=== PATIENT | female | born 1950 | race Caucasian/White ===

== ENCOUNTER 2016-06-28 10:54 | Outpatient (CLI) | payer MEDICARE, MEDICAID | END 2016-06-28 10:55 | disposition home or self-care (01) | DX: R53.83 Other fatigue (principal); I10 Essential (primary) hypertension ==

== ENCOUNTER 2016-07-03 08:00 | Outpatient (CLI) | payer MEDICARE, MEDICAID | END 2016-07-03 08:01 | DX: Z86.2 Personal history of diseases of the blood and blood-forming organs and certain disorders involving the immune mechanism (principal); R53.83 Other fatigue ==

== ENCOUNTER 2017-08-13 13:27 | Outpatient (CLI) | payer MEDICARE, MEDICAID ==
--- NOTE | 2017-08-14 10:10 | DEXA Report ---
DEXA: 08/13/2017 CLINICAL INDICATION: Postmenopausal. TECHNIQUE: Dual energy x-ray absorptiometry (DXA) was performed on a [employer] system. Regions measured are the AP spine, femoral neck, and, if needed, forearm. COMPARISON: None. In accordance with the International Society for Clinical Densitometry (ISCD) guidelines, data from previous exams may be reanalyzed using current recommendations and techniques. This is done to allow a more accurate basis for comparison with the current study. FINDINGS The data for the lumbar spine is as follows: REGION BMD (g/cm/cm) T-SCORE Z-SCORE L1 0.741 -3.2 -1.0 L2 0.918 -2.4 -0.1 L3 1.053 -1.2 1.0 L4 1.234 0.3 2.5 L1-L4 1.027 -1.3 1.0 NOTE: All evaluable vertebrae are used for classification. The data for the hip is as follows: REGION BMD (g/cm/cm) T-SCORE Z-SCORE Neck 0.625 -3.0 -0.9 TOTAL 0.606 -3.2 -1.3 NOTE: The femoral neck or total proximal femur, whichever is lowest, is used for classification. IMPRESSION WHO CLASSIFICATION BASED ON THE INTERNATIONAL REFERENCE STANDARD IS OSTEOPOROSIS. FRACTURE RISK IS HIGH. RECOMMENDATION: Patients with diagnosis of osteoporosis or osteopenia should have regular bone mineral density assessment. For those eligible for Medicare, routine testing is allowed once every 2 years. Testing frequency can be increased for patients who have rapidly progressing disease or for those who are receiving medical therapy to restore bone mass. COMMENT World Health Organization (WHO) definitions for osteoporosis and osteopenia: NORMAL BMD: T-score at 1.0 or higher, fracture risk is low. OSTEOPENIA BMD: T-score between 1.0 and -2.5, fracture risk is increased. OSTEOPOROSIS BMD: T-score at 2.5 or lower, fracture risk high. National Osteoporosis Foundation recommends: 1. Obtain adequate dietary calcium (at least 1200 mg per day) and vitamin D (400 -800 international units per day). 2. Participate, as appropriate, in regular weightbearing and muscle- strengthening exercise. 3. Avoid tobacco use and reduce alcohol and caffeine intake. 4. For more detailed information see the website at www.NOF.org. TD: 08/13/2017 15:46 MTDD
== END 2017-08-13 13:28 | disposition home or self-care (01) ==
LOC: DI 13:27
PROVIDERS: ATTEND Nurse Practitioner Family
DX: Z00.00 Encounter for general adult medical examination without abnormal findings (principal); M81.0 Age-related osteoporosis without current pathological fracture
CPT/HCPCS: 77080

== ENCOUNTER 2017-08-13 13:28 | Outpatient (CLI) | payer MEDICARE, MEDICAID ==
--- NOTE | 2017-08-13 15:02 | Mammography Report ---
DIAGNOSTIC BILATERAL MAMMOGRAM: 08/13/2017 CLINICAL INDICATION: Bilateral pain. TECHNIQUE: Bilateral CC, MLO, laterally exaggerated, true lateral views. The patient described the pain as diffuse and bilateral, so no markers were placed. COMPARISON: 12/17/2013, 11/13/2008. FINDINGS: The breasts again demonstrate heterogeneously dense fibroglandular parenchyma bilaterally. Punctate, typically benign calcifications are present. No suspicious masses, clustered microcalcifications, or regions of architectural distortion are identified. IMPRESSION: BENIGN FINDINGS. RECOMMENDATION: Routine annual screening unless otherwise clinically indicated. BI-RADS CATEGORY 2 - BENIGN FINDINGS. STANDARD QUALIFYING STATEMENTS: 1. This examination was reviewed with the aid of Computer-Aided Detection (CAD). 2. A negative or benign imaging report should not delay biopsy if clinically suspicious findings are present. Consider surgical consultation if warranted. More than 5% of cancers are not identified by imaging. 3. Dense breasts may obscure an underlying neoplasm. TD: 08/13/2017 14:32
== END 2017-08-13 13:29 | disposition home or self-care (01) ==
LOC: DI 13:28
PROVIDERS: ATTEND Nurse Practitioner Family
DX: Z00.00 Encounter for general adult medical examination without abnormal findings (principal); M81.0 Age-related osteoporosis without current pathological fracture; N64.4 Mastodynia; Z78.0 Asymptomatic menopausal state
CPT/HCPCS: 77066; 77080

== ENCOUNTER 2017-11-05 14:01 | Outpatient (CLI) | payer MEDICARE, MEDICAID ==
--- NOTE | 2017-11-05 16:14 | XRAY Report ---
Procedure Date: 11/05/2017 Accession Number: [id number] / [id number] Procedure: XRS - Mandible Bilat CPT Code: FULL RESULT: EXAM: MANDIBLE RADIOGRAPHY EXAM DATE: 11/05/2017 03:27 PM. HISTORY: Fall 3 days ago. Bilateral mandible pain, greater on the left. COMPARISONS: None. TECHNIQUE: 4 views. FINDINGS: Bones: Normal. No fractures or bone lesions. Temporomandibular Joints: Normal. The temporomandibular joints are normally located and symmetric. Sinuses: Normal. No opacities or fluid levels. Other: Normal. No soft tissue swelling. IMPRESSION: Normal mandible radiography. RADIA
--- NOTE | 2017-11-05 16:35 | XRAY Report ---
Procedure Date: 11/05/2017 Accession Number: [id number] / [id number] Procedure: XRS - Ribs Bilat w/Chest 4 View CPT Code: FULL RESULT: EXAM: BILATERAL RIB RADIOGRAPHY EXAM DATE: 11/05/2017 03:25 PM. CLINICAL HISTORY: Bilateral rib pain since a fall 3 days ago. COMPARISON: XR CHEST PA AND LAT 03/02/2008. TECHNIQUE: 1 view of the chest and 2 views of the ribs. FINDINGS: Bones: Normal. No fracture or bone lesion. Scoliosis. Lungs: No focal opacities. No pneumothorax. No pleural effusions. Mediastinum: Heart and mediastinal contours are unremarkable. Other: None. IMPRESSION: Normal chest and rib radiography. RADIA
== END 2017-11-05 14:02 | disposition home or self-care (01) ==
LOC: DI.S 14:01
PROVIDERS: ATTEND Nurse Practitioner Family
DX: R68.84 Jaw pain (principal); R07.81 Pleurodynia
CPT/HCPCS: 70110; 71111

== ENCOUNTER 2018-04-17 15:22 | Emergency (ER) | payer MEDICARE, MEDICAID ==
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
[2018-04-17 18:11] LABS: BASOPHILS # (AUTO) 0.1 10^3/uL (0.0-0.1); BASOPHILS % (AUTO) 1.8 %; EOSINOPHILS # (AUTO) 0.1 10^3/uL (0.0-0.7); EOSINOPHILS % (AUTO) 1.3 %; HGB - HEMOGLOBIN 13.5 g/dL (12.0-16.0); LYMPHOCYTES # (AUTO) 1.4 10^3/uL (1.5-3.5); MEAN CORPUSCULAR HGB CONC 33.1 g/dL (32.0-36.0); MEAN CORPUSCULAR VOLUME 84.8 fL (81.0-99.0); MEAN PLATELET VOLUME 7.6 fL (7.9-10.8); MONOCYTES # (AUTO) 0.3 10^3/uL (0.0-1.0); MONOCYTES % (AUTO) 6.3 %; NEUTROPHILS # (AUTO) 3.3 10^3/uL (1.5-6.6); NEUTROPHILS % (AUTO) 63.6 %; PLT - PLATELET COUNT 276 10^3/uL (130-450); RED BLOOD COUNT 4.82 10^6/uL (4.20-5.40); RED CELL DISTRIBUTION WIDTH 14.8 % (12.0-15.0); WHITE BLOOD COUNT 5.1 x10^3/uL (4.8-10.8)
[2018-04-17 18:18] LABS: MUDS CUTOFF CONCENTRATIONS CUTOFF CONC BELOW:
[2018-04-17 18:24] LABS: ALBUMIN/GLOBULIN RATIO 1.5 (1.0-2.2); BILIRUBIN,TOTAL 0.7 mg/dL (0.2-1.0); CREATININE 0.9 mg/dL (0.4-1.0); TOTAL PROTEIN 6.7 g/dL (6.7-8.2)
[2018-04-17 18:37] LABS: BILIRUBIN,URINE NEGATIVE (NEGATIVE); GLUCOSE, URINE (UA) NEGATIVE (NEGATIVE); KETONES,URINE (UA) NEGATIVE (NEGATIVE); LEUKOCYTE ESTERASE, URINE NEGATIVE (NEGATIVE); NITRITE,URINE NEGATIVE (NEGATIVE); OCCULT BLOOD,URINE NEGATIVE (NEGATIVE); PH,URINE 6.5 PH (5.0-7.5); PROTEIN,URINE NEGATIVE (NEGATIVE); UROBILINOGEN,URINE 0.2 (NORMAL) E.U./dL (NORMAL)
[2018-04-17 18:47] VITALS: BP 164/90
[2018-04-17 18:48] LABS: CLARITY,URINE CLEAR (CLEAR)
[2018-04-17 18:49] LABS: AMPHETAMINE SCREEN,URINE NEGATIVE (NEGATIVE); BENZODIAZEPINES SCREEN, URINE NEGATIVE (NEGATIVE); COCAINE SCREEN URINE NEGATIVE (NEGATIVE); METHADONE SCREEN, URINE NEGATIVE (NEGATIVE); METHAMPHETAMINES SCREEN, URINE NEGATIVE (NEGATIVE); OPIATE SCREEN, URINE NEGATIVE (NEGATIVE); OXYCODONE SCREEN, URINE NEGATIVE (NEGATIVE); PROPOXYPHENE SCREEN, URINE NEGATIVE (NEGATIVE); TRICYCLIC ANTIDEPRESSANT,URINE NEGATIVE (NEGATIVE)
== END 2018-04-17 19:20 | disposition home or self-care (01) ==
LOC: ED 15:22
DX: F10.120 Alcohol abuse with intoxication, uncomplicated (principal); F41.9 Anxiety disorder, unspecified; R03.0 Elevated blood-pressure reading, without diagnosis of hypertension
CPT/HCPCS: 36415; 80053; 80306; 80320; 81001; 81003; 83690; 85025; 87086; 99283

== ENCOUNTER 2018-11-14 22:06 | Outpatient (CLI) | payer MEDICARE, MEDICAID | END 2018-11-14 22:07 | disposition critical access hospital (66) | LOC: EMS 22:06 | PROVIDERS: ATTEND Surgery | DX: R46.89 Other symptoms and signs involving appearance and behavior (principal) ==

== ENCOUNTER 2018-11-14 22:41 | Emergency (ER) | payer MEDICARE, MEDICAID ==
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
[2018-11-15 00:19] LABS: BASOPHILS # (AUTO) 0.1 10^3/uL (0.0-0.1); BASOPHILS % (AUTO) 0.8 %; EOSINOPHILS % (AUTO) 0.3 %; LYMPHOCYTES % (AUTO) 10.9 %; MEAN CORPUSCULAR HEMOGLOBIN 28.3 pg (27.0-31.0); MEAN CORPUSCULAR HGB CONC 34.5 g/dL (32.0-36.0); MEAN CORPUSCULAR VOLUME 82.2 fL (81.0-99.0); MEAN PLATELET VOLUME 9.6 fL (7.9-10.8); MONOCYTES # (AUTO) 0.4 10^3/uL (0.0-1.0); MONOCYTES % (AUTO) 3.9 %; NEUTROPHILS # (AUTO) 7.6 10^3/uL (1.5-6.6); NEUTROPHILS % (AUTO) 83.8 %; PLT - PLATELET COUNT 254 10^3/uL (130-450); RED BLOOD COUNT 4.94 10^6/uL (4.20-5.40); RED CELL DISTRIBUTION WIDTH 13.9 % (12.0-15.0); WHITE BLOOD COUNT 9.1 x10^3/uL (4.8-10.8)
[2018-11-15 00:29] LABS: CALCIUM 9.6 mg/dL (8.5-10.3)
[2018-11-15 05:41] LABS: MUDS CUTOFF CONCENTRATIONS CUTOFF CONC BELOW:
[2018-11-15 05:42] LABS: BILIRUBIN,URINE NEGATIVE (NEGATIVE); GLUCOSE, URINE (UA) NEGATIVE (NEGATIVE); KETONES,URINE (UA) TRACE mg/dL (NEGATIVE); LEUKOCYTE ESTERASE, URINE NEGATIVE (NEGATIVE); NITRITE,URINE NEGATIVE (NEGATIVE); OCCULT BLOOD,URINE NEGATIVE (NEGATIVE); PROTEIN,URINE NEGATIVE (NEGATIVE); UROBILINOGEN,URINE 0.2 (NORMAL) E.U./dL (NORMAL)
[2018-11-15 05:43] LABS: CLARITY,URINE CLEAR (CLEAR)
[2018-11-15 06:07] LABS: AMPHETAMINE SCREEN,URINE NEGATIVE (NEGATIVE); BENZODIAZEPINES SCREEN, URINE NEGATIVE (NEGATIVE); COCAINE SCREEN URINE NEGATIVE (NEGATIVE); METHADONE SCREEN, URINE NEGATIVE (NEGATIVE); METHAMPHETAMINES SCREEN, URINE NEGATIVE (NEGATIVE); OPIATE SCREEN, URINE NEGATIVE (NEGATIVE); OXYCODONE SCREEN, URINE NEGATIVE (NEGATIVE); PROPOXYPHENE SCREEN, URINE NEGATIVE (NEGATIVE); TRICYCLIC ANTIDEPRESSANT,URINE NEGATIVE (NEGATIVE)
[2018-11-15 12:00] VITALS: BP 134/80
== END 2018-11-15 12:03 | disposition home or self-care (01) ==
LOC: EDUNIT# → ED 22:41
DX: F41.9 Anxiety disorder, unspecified (principal); F10.929 Alcohol use, unspecified with intoxication, unspecified
CPT/HCPCS: 36415; 80048; 80306; 80320; 81001; 81003; 85025; 87086; 99284

== ENCOUNTER 2018-11-20 15:08 | Outpatient (CLI) | payer MEDICARE, MEDICAID | END 2018-11-20 15:09 | disposition home or self-care (01) | LOC: LAB.S 15:08 | PROVIDERS: ATTEND Family Medicine | DX: Z53.9 Procedure and treatment not carried out, unspecified reason (principal) ==

== ENCOUNTER 2018-11-21 09:03 | Outpatient (CLI) | payer MEDICARE, MEDICAID ==
[2018-11-21 17:25] LABS: BASOPHILS # (AUTO) 0.1 10^3/uL (0.0-0.1); BASOPHILS % (AUTO) 0.9 %; EOSINOPHILS # (AUTO) 0.1 10^3/uL (0.0-0.7); EOSINOPHILS % (AUTO) 1.4 %; HGB - HEMOGLOBIN 12.5 g/dL (12.0-16.0); LYMPHOCYTES # (AUTO) 1.1 10^3/uL (1.5-3.5); LYMPHOCYTES % (AUTO) 19.7 %; MEAN CORPUSCULAR HEMOGLOBIN 27.5 pg (27.0-31.0); MEAN CORPUSCULAR HGB CONC 31.5 g/dL (32.0-36.0); MEAN CORPUSCULAR VOLUME 87.3 fL (81.0-99.0); MONOCYTES # (AUTO) 0.5 10^3/uL (0.0-1.0); MONOCYTES % (AUTO) 8.5 %; NEUTROPHILS # (AUTO) 3.8 10^3/uL (1.5-6.6); NEUTROPHILS % (AUTO) 69.3 %; PLT - PLATELET COUNT 214 10^3/uL (130-450); RED BLOOD COUNT 4.55 10^6/uL (4.20-5.40); RED CELL DISTRIBUTION WIDTH 14.4 % (12.0-15.0); WHITE BLOOD COUNT 5.5 x10^3/uL (4.8-10.8)
[2018-11-21 18:03] LABS: ALBUMIN 3.9 g/dL (3.2-5.5); ALBUMIN/GLOBULIN RATIO 1.4 (1.0-2.2); ALKALINE PHOSPHATASE 68 IU/L (42-121); ALT ALANINE AMINOTRANSFERASE 16 IU/L (10-60); AST ASPARTATE AMINOTRANSFERASE 20 IU/L (10-42); BILIRUBIN,TOTAL 0.8 mg/dL (0.2-1.0); BUN - BLOOD UREA NITROGEN 26 mg/dL (6-20); CALCIUM 8.9 mg/dL (8.5-10.3); CARBON DIOXIDE - CO2 29 mmol/L (21-32); CHLORIDE 104 mmol/L (101-111); CHOL/HDL RATIO 2.2 (<4.4); CHOLESTEROL 194 mg/dL; CREATININE 0.9 mg/dL (0.4-1.0); GFR - MDRD 62 (>89); GLUCOSE 87 mg/dL (70-100); HDL CHOLESTEROL 87 mg/dL; LDL CHOLESTEROL,CALCULATED 98 mg/dL; LDL/HDL RATIO 1.1 (<4.4); SODIUM 141 mmol/L (135-145); TOTAL PROTEIN 6.6 g/dL (6.7-8.2); VLDL CHOLESTEROL 9 mg/dL
[2018-11-21 21:37] LABS: TRICHOMONAS VAGINALIS DNA NEGATIVE (NEGATIVE)
[2018-11-22 15:46] LABS: HEPATITIS C ANTIBODY NON-REACTIVE (NON-REACTIVE)
== END 2018-11-21 09:04 | disposition home or self-care (01) ==
LOC: LAB.S 09:03
PROVIDERS: ATTEND Family Medicine
DX: Z00.00 Encounter for general adult medical examination without abnormal findings (principal); I10 Essential (primary) hypertension; D64.9 Anemia, unspecified; Z20.2 Contact with and (suspected) exposure to infections with a predominantly sexual mode of transmission
CPT/HCPCS: 36415; 80053; 80061; 81599; 83721; 84443; 85025; 86317; 86592; 86803; 87491; 87591; 87661

== ENCOUNTER 2018-11-23 21:07 | Emergency (ER) | payer MEDICARE, MEDICAID ==
--- NOTE | 2018-11-23 21:28 | ED Physician Documentation ---
PD HPI UPPER EXT INJURY - Stated complaint Stated Complaint: SHOULDER PX/FALL - Chief complaint Chief Complaint: Trauma Ext - History obtained from History obtained from: Patient, Family - History of Present Illness Location: Left, Shoulder, Forearm, Other (knee) Type of injury: Fall Where injury occurred: Park Timing - onset: Today Timing - duration: Minutes Timing - details: Abrupt onset, Still present Improved by: Rest, Ice, Immobilization Worsened by: Moving, Palpating Associated symptoms: Swelling. No: Weakness, Numbness Contributing factors: No: Anticoagulated Similar symptoms before: Has not had sx before Recently seen: Not recently seen - Additonal information Additional information: 68-year-old female was walking or walking on a trail today when she was looking up at her now and tripped over a tree root she fell onto her left side and has injured her left shoulder and forearm. She is also injured her right knee. She does have some pain with weightbearing on the right side it is under the patella. She is able to flex and extend the forearm wrist and shoulder. Review of Systems Constitutional: denies: Fever Eyes: denies: Decreased vision Ears: denies: Ear pain Nose: denies: Congestion Respiratory: denies: Dyspnea, Cough GI: denies: Nausea, Vomiting Skin: denies: Rash Musculoskeletal: reports: Extremity pain, Joint pain, Pain with weight bearing Neurologic: denies: Generalized weakness, Focal weakness, Numbness PD PAST MEDICAL HISTORY - Past Medical History Past Medical History: Yes Cardiovascular: None Respiratory: None Endocrine/Autoimmune: None GI: None : None HEENT: None Psych: Depression, Anxiety Musculoskeletal: Osteoporosis Derm: None - Past Surgical History Past Surgical History: Yes General: 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 HEENT: Tonsil/Adenoidectomy - Present Medications Home Medications: Ambulatory Orders Medication Instructions Recorded Confirmed Sertraline [Zoloft] 0 mg PO DAILY 11/14/18 11/23/18 Albuterol Sulfate [Albuterol 1 - 2 puffs INH PRN PRN 11/23/18 11/23/18 Sulfate Hfa] Hydrocodone/Acetaminophen 1 - 2 each PO Q6H PRN #14 tablet 11/24/18 [Hydrocodon-Acetaminophen 5-325] - Allergies Allergies/Adverse Reactions: Allergies Allergy/AdvReac Type Severity Reaction Status Date / Time Penicillins Allergy Unknown Unknown Verified 11/23/18 21:15 dairy products Allergy Unknown Uncoded 11/23/18 21:15 - Social History Does the pt smoke?: No Smoking Status: Never smoker Does the pt drink ETOH?: Yes Does the pt have substance abuse?: No - Immunizations Immunizations are current?: No Immunizations: TDAP >10years/unknown - POLST Patient has POLST: No PD ED PE NORMAL - Vitals Vital signs reviewed: Yes (hypertensive mild ) - General General: Alert and oriented X 3, No acute distress, Well developed/nourished - HEENT HEENT: Atraumatic, PERRL, EOMI - Neck Neck: Supple, no meningeal sign - Respiratory Respiratory: No respiratory distress - Derm Derm: Normal color, Warm and dry, No rash - Extremities Extremities: No deformity, Other (There is pain to palpation of the left shoulder over the deltoid. There is normal ROM actively and distal n/v is intact. There is no crepitance or deformity. There is pain over the distal radius but with good ROM of the wrist. There is pain over the proximal radius as well but with good supination/pronation and no tenderness to the elbow or olecrenon. Distal n/v is intact. ) - Neuro Neuro: Alert and oriented X 3, bristle machine operator 2-12 intact, No motor deficit, No sensory deficit, Normal speech Eye Opening: Spontaneous Motor: Obeys Commands Verbal: Oriented GCS Score: 15 - Psych Psych: Normal mood, Normal affect Results - Vitals Vitals: Vital Signs - 24 hr 11/23/18 11/23/18 11/23/18 21:10 23:18 23:50 Temperature 36.5 C 36.5 C Heart Rate 64 52 L 53 L Respiratory 18 15 16 Rate Blood Pressure 130/84 H 153/78 H 136/85 H O2 Saturation 100 100 100 Oxygen O2 Source Room air - Rads (name of study) L wrist Radiology: Prelim report reviewed (Impression: Comminuted fracture of the distal radial shaft, without evident intra-articular extension. Foreshortening and angulation.), EMP read indepedently, See rad report knee R Radiology: Prelim report reviewed (Impression: Moderate to severe osteoarthritis. No evidence of acute fracture. Soft tissue swelling, with possible subcutaneous gas, suspicious for laceration. No radiopaque foreign body), EMP read indepedently, See rad report shoulder L Radiology: Prelim report reviewed (Impression: Soft tissue swelling and osteoarthritis. No evidence of acute fracture.), EMP read indepedently, See rad report Procedures - Splint (location) left wrist Splint applied by: Tech Type of splint: Fiberglass, Volar cock up Other: Patient tolerated well, No complications, Neurovascular intact, Good alignment, Sling provided PD MEDICAL DECISION MAKING - ED course Complexity details: reviewed old records, reviewed results, re-evaluated patient, considered differential, d/w patient, d/w family, d/w revenue cycle consultant (Eri: will see in clinic for plating. ) ED course: 68-year-old female with a fall outdoors has a fractured left wrist on the distal radial shaft with some foreshortening and angulation. She is placed into a volar splint and a sling and will need follow-up with orthopedics. She has injury to the shoulder without evidence of fracture and she is in a sling for this as well. She has injury to the right knee without ligamentous instability she is placed into a knee immobilizer for comfort and this does seem to help. She complained of some tingling to her fingers with and the orthopedic surgeon was consulted for film review and he recommended conservative treatment with splinting and straightening and follow up for surgical fixation. He requested she return for worsening numbness. The patient's numbness improved in the splint at discharge. Departure - Departure Disposition: 01 Home, Self Care Clinical Impression: Radius distal fracture Qualifiers: Encounter type: initial encounter Fracture type: closed Fracture morphology: other extra-articular Laterality: left Qualified Code(s): S52.552A - Other extraarticular fracture of lower end of left radius, initial encounter for closed fracture Right knee sprain Qualifiers: Encounter type: initial encounter Involved ligament of knee: unspecified ligament Qualified Code(s): S83.91XA - Sprain of unspecified site of right knee, initial encounter Condition: Stable Instructions: ED Sprain Knee, ED Fx Forearm Radius Ulna Redu Requ, ED Sprain Shoulder Follow-Up: Nigel Reilly MD [Provider Admit Priv/Credential] - Prescriptions: Hydrocodone/Acetaminophen [Hydrocodon-Acetaminophen 5-325] 1 - 2 each PO Q6H PRN #14 tablet PRN Reason: pain Discharge Date/Time: 11/24/18 00:35
--- NOTE | 2018-11-23 23:41 | XRAY Report ---
Reason: Fall anterior deltoid pain Procedure Date: 11/23/2018 Accession Number: [id number] / [id number] Procedure: XR - Shoulder 3 View LT CPT Code: FULL RESULT: EXAM: LEFT SHOULDER RADIOGRAPHY EXAM DATE: 11/23/2018 10:44 PM. CLINICAL HISTORY: Fall anterior deltoid pain. COMPARISON: None. TECHNIQUE: 3 views. FINDINGS: Bones: Normal. No fracture or bone lesion. Joints: Mild degenerative changes of the acromioclavicular joint. Soft tissues: Soft tissue swelling. No radiopaque foreign body. IMPRESSION: Soft tissue swelling and osteoarthritis. No evidence of acute fracture. RADIA
--- NOTE | 2018-11-23 23:44 | XRAY Report ---
Reason: fall patellar pain Procedure Date: 11/23/2018 Accession Number: [id number] / [id number] Procedure: XR - Knee 4 View RT CPT Code: FULL RESULT: EXAM: RIGHT KNEE RADIOGRAPHY EXAM DATE: 11/23/2018 11:34 PM. CLINICAL HISTORY: Fall patellar pain. COMPARISON: None. TECHNIQUE: 6 views. FINDINGS: Bones: No evidence of acute fracture. Multiple subchondral cysts. Joints: Moderate to severe osteoarthritis. No effusion. Soft Tissues: Soft tissue swelling. Small foci of subcutaneous gas, seen on the lateral views, suspicious for laceration. No radiopaque foreign body. IMPRESSION: Moderate to severe osteoarthritis. No evidence of acute fracture. Soft tissue swelling, with possible subcutaneous gas, suspicious for laceration. No radiopaque foreign body. RADIA
--- NOTE | 2018-11-23 23:45 | XRAY Report ---
Reason: fall pain in distal and proximal radius Procedure Date: 11/23/2018 Accession Number: [id number] / [id number] Procedure: XR - Forearm LT CPT Code: FULL RESULT: EXAM: LEFT FOREARM RADIOGRAPHY EXAM DATE: 11/23/2018 11:33 PM. CLINICAL HISTORY: Fall pain in distal and proximal radius. COMPARISON: None. TECHNIQUE: 2 views. FINDINGS: Bones: Comminuted distal radial shaft fracture, with foreshortening and angulation. No evident extension of the fracture to the radial articular surface. Joints: Normal. No effusions or subluxations in the visualized wrist or elbow joints. Soft Tissues: Soft tissue swelling. IMPRESSION: Comminuted fracture of the distal radial shaft, without evident intra-articular extension. Foreshortening and angulation. RADIA
[2018-11-23 23:51] VITALS: BP 136/85
--- NOTE | 2018-11-24 00:20 | PROVIDER PROGRESS NOTE ---
Objective - Vital Signs/Intake & Output Vital Signs: Vital Signs x48h Temp Pulse Resp BP Pulse Ox 11/23/18 23:50 53 L 16 136/85 H 100 11/23/18 23:18 36.5 C 52 L 15 153/78 H 100 11/23/18 21:10 36.5 C 64 18 130/84 H 100 Assessment/Plan - Problem List (1) Radius distal fracture Impression: phone call by Dr. Caal. Asked about left distal radius fracture and reported mild tingling tips of left 2nd and 3rd digits. denies numbness or vascular compromise. advised that may be some stretch or swelling around (med.) nerve (unlikely cut or otherwise injured). he will attempt reduction and splinting. he will advise patient of above, as well as likely need for surgical intervention (both to bone and nerve) and advise patient to re-present or call ortho if any worsening whatsoever. rationale for this reviewed. Qualifiers: Encounter type: initial encounter Fracture type: closed Fracture morphology: other extra-articular Laterality: left Qualified Code(s): S52.552A - Other extraarticular fracture of lower end of left radius, initial encounter for closed fracture
[2018-11-24] MEDS ORDERED: HYDROcod/ACET 5/325 Prepack 4 PO STA (00:22)
== END 2018-11-24 00:35 | disposition home or self-care (01) ==
LOC: ED 21:07
DX: S52.552A Other extraarticular fracture of lower end of left radius, initial encounter for closed fracture (principal); S83.91XA Sprain of unspecified site of right knee, initial encounter; S49.92XA Unspecified injury of left shoulder and upper arm, initial encounter; W01.0XXA Fall on same level from slipping, tripping and stumbling without subsequent striking against object, initial encounter; Y93.01 Activity, walking, marching and hiking; Y92.828 Other wilderness area as the place of occurrence of the external cause; M19.012 Primary osteoarthritis, left shoulder; M17.11 Unilateral primary osteoarthritis, right knee
CPT/HCPCS: 29125; 99284

== ENCOUNTER 2018-11-26 17:10 | Outpatient (CLI) | payer MEDICARE, MEDICAID ==
--- NOTE | 2018-11-26 19:05 | CT Report ---
Reason: LEFT DISTAL RADIUS FRACTURE Procedure Date: 11/26/2018 Accession Number: [id number] / [id number] Procedure: CT - UPPER EXTREMITY WO - LT CPT Code: FULL RESULT: EXAM: LEFT WRIST CT WITHOUT CONTRAST EXAM DATE: 11/26/2018 06:25 PM. CLINICAL HISTORY: LEFT DISTAL RADIUS FRACTURE. COMPARISON: WRIST LT W/O 11/26/2018 5:25 PM. TECHNIQUE: Thin-section axial images were acquired of the elbow without contrast. Post-processing: Coronal and sagittal reformats. Other: None. In accordance with CT protocol optimization, one or more of the following dose reduction techniques were utilized for this exam: automated exposure control, adjustment of mA and/or KV based on patient size, or use of iterative reconstructive technique. FINDINGS: Bones: Comminuted distal radius shaft fracture with 17 degree lateral angulation of the fracture apex, 6 mm ventral displacement of distal fracture fragment and 23 degrees dorsal angulation of the fracture apex. Joints: Sclerosis and extensive cystic degenerative changes proximal lunate. Mild lunate marrow edema MRI 11/26/2018. Cystic degenerative changes at distal ulna. Cystic degenerative changes ulnar aspect distal radius. Widening of the distal radioulnar joint. Negative for increased fluid distal radioulnar joint MRI 11/26/2018. Widening of the scapholunate interval. Tear of the scapholunate ligament. Musculature: Normal. No fatty atrophy. Other: None. IMPRESSION: 1. Comminuted fracture distal radius diametaphysis with 17 degrees lateral angulation of the fracture apex, 23 degrees dorsal angulation of the fracture apex and 6 mm anterior displacement distal fracture fragment. 2. Widening of the scapholunate distance consistent with scapholunate ligament tear and scapholunate dissociation. Increased 80 degree scaphoid lunate angle. 3. 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 Mild edema is noted of the lunate on the MRI 11/26/2018. 4. Widening of the distal radioulnar joint without dislocation. RADIA
--- NOTE | 2018-11-26 19:05 | MRI Report ---
Reason: LEFT DISTAL RADIUS FRACTURE Procedure Date: 11/26/2018 Accession Number: [id number] / [id number] Procedure: MRI - Wrist LT W/O CPT Code: FULL RESULT: EXAM: LEFT WRIST MRI WITHOUT CONTRAST EXAM DATE: 11/26/2018 06:29 PM. CLINICAL HISTORY: LEFT DISTAL RADIUS FRACTURE. COMPARISON: FOREARM LT 11/23/2018 10:44 PM UPPER EXTREMITY LEFT W/O 11/26/2018 6:25 PM. TECHNIQUE: Multiplanar, multisequence T1-weighted and fluid-sensitive sequences of the wrist without contrast. Other: None. FINDINGS: Bones and articular cartilage: As seen on the previous studies, there is a displaced and comminuted extra-articular fracture at the distal radial metaphysis. There is dorsal ulnar apex angulation at the fracture site. The distal fracture fragment is displaced volarly by up to approximately 6 mm. There is cysts at the ulnar aspect of the distal end of the radius, distal end of the ulna, proximal aspect of the lunate. Mild marrow edema within the lunate. Borderline widening at the scapholunate joint. The triangular fibrocartilage complex is unremarkable. Ligaments: The scapholunate and lunotriquetral ligaments are intact. The visualized other intrinsic, extrinsic and collateral ligaments are unremarkable. Tendons: The extensor compartment I through and flexor tendons are unremarkable. Musculature: Edema within the pronator quadratus muscle, adjacent to the distal radial fracture. Other: The contents of the carpal tunnel, including the median nerve, are unremarkable. Guyons canal is unremarkable. No ganglion cysts. No joint effusions. Diffuse subcutaneous edema and swelling. IMPRESSION: 1. Displaced and comminuted mildly angulated distal radial metaphyseal fracture. 2. Edema within the pronator quadratus muscle, adjacent to the distal radial fracture suggestive of strain/contusion. 3. Cysts at the distal end of the radius, distal ulna, and lunate which are most likely degenerative. Mild marrow edema within the lunate which may represent bone contusion or stress reaction. 3. Borderline widening at the scapholunate joint. However, no definite evidence of scapholunate ligament tear. RADIA
== END 2018-11-26 17:11 | disposition home or self-care (01) ==
LOC: DI 17:10
PROVIDERS: ATTEND Orthopaedic Surgery Sports Medicine
DX: S52.552A Other extraarticular fracture of lower end of left radius, initial encounter for closed fracture (principal); M19.032 Primary osteoarthritis, left wrist; R60.0 Localized edema

== ENCOUNTER 2019-02-05 12:39 | Outpatient (CLI) | payer MEDICARE, MEDICAID ==
--- NOTE | 2019-02-07 11:39 | Mammography Report ---
Reason: SCREENING Procedure Date: 02/05/2019 Accession Number: [id number] / [id number] Procedure: CELINA - Screening Mammo Dig Bilat CPT Code: Final Report FULL RESULT: EXAM: Screening Mammo Dig Bilat DATE: 02/05/2019 1:11 PM CLINICAL HISTORY: Routine screening. No reported personal history of breast cancer. Family history breast cancer mother age 70 paternal aunt age 25. TECHNIQUE: (B) - Bilateral CC and MLO views were obtained. COMPARISON: 08/13/2017 through 12/17/2013. PARENCHYMAL PATTERN: (D) - The breasts demonstrate heterogeneously dense fibroglandular parenchyma bilaterally. FINDINGS: Bilateral breasts: There are no suspicious masses, calcifications, or areas of distortion. IMPRESSION: Negative examination. BI-RADS category 1. RECOMMENDATION: (ANNUAL) - Recommend routine annual screening mammography. BI-RADS CATEGORY: (1) - Negative. STANDARD QUALIFYING STATEMENTS: 1. This examination was not reviewed with the aid of Computer-Aided Detection (CAD). 2. A negative or benign imaging report should not preclude biopsy if clinically suspicious findings are present. 3. Dense breasts may obscure an underlying neoplasm. 4. This examination was reviewed without the aid of 3D breast imaging (tomosynthesis).
== END 2019-02-05 12:40 | disposition home or self-care (01) ==
LOC: DI 12:39
PROVIDERS: ATTEND Family Medicine
DX: Z12.31 Encounter for screening mammogram for malignant neoplasm of breast (principal); Z80.3 Family history of malignant neoplasm of breast
CPT/HCPCS: 77067

== ENCOUNTER 2019-12-05 14:18 | Outpatient (CLI) | payer MEDICARE, MEDICAID | END 2019-12-05 14:19 | disposition home or self-care (01) | LOC: COV 14:18 | PROVIDERS: ATTEND Family Medicine | DX: R05 Cough (principal); R06.02 Shortness of breath; M79.10 Myalgia, unspecified site; R53.83 Other fatigue; R09.81 Nasal congestion; Z20.828 Contact with and (suspected) exposure to other viral communicable diseases ==

== ENCOUNTER 2020-09-20 11:56 | Outpatient (CLI) | payer MEDICARE, MEDICAID | END 2020-09-20 11:57 | disposition short-term general hospital (02) | LOC: EMS 11:56 | DX: Z04.3 Encounter for examination and observation following other accident (principal); M25.551 Pain in right hip | CPT/HCPCS: A0425; A0427 ==

== ENCOUNTER 2020-09-30 12:41 | Outpatient (CLI) | payer MEDICARE, MEDICAID ==
[2020-09-30 12:50] LABS: BASOPHILS # (AUTO) 0.1 10^3/uL (0.0-0.1); BASOPHILS % (AUTO) 0.8 %; EOSINOPHILS # (AUTO) 0.1 10^3/uL (0.0-0.7); EOSINOPHILS % (AUTO) 1.7 %; HCT - HEMATOCRIT 29.8 % (37.0-47.0); MEAN CORPUSCULAR HEMOGLOBIN 27.5 pg (27.0-31.0); MEAN CORPUSCULAR HGB CONC 33.6 g/dL (32.0-36.0); MEAN CORPUSCULAR VOLUME 81.9 fL (81.0-99.0); MEAN PLATELET VOLUME 9.3 fL (7.9-10.8); MONOCYTES # (AUTO) 0.4 10^3/uL (0.0-1.0); MONOCYTES % (AUTO) 6.7 %; NEUTROPHILS % (AUTO) 75.2 %; PLT - PLATELET COUNT 340 10^3/uL (130-450); RED BLOOD COUNT 3.64 10^6/uL (4.20-5.40); RED CELL DISTRIBUTION WIDTH 14.6 % (12.0-15.0); WHITE BLOOD COUNT 6.6 x10^3/uL (4.8-10.8)
== END 2020-09-30 12:42 | disposition home or self-care (01) ==
LOC: LAB.R 12:41
DX: D64.9 Anemia, unspecified (principal)
CPT/HCPCS: 85025

== ENCOUNTER 2020-10-01 16:49 | Outpatient (CLI) | payer MEDICARE, MEDICAID | END 2020-10-01 16:50 | disposition short-term general hospital (02) | LOC: EMS 16:49 | DX: M25.551 Pain in right hip (principal) | CPT/HCPCS: A0425; A0429 ==

== ENCOUNTER 2021-10-11 14:50 | Outpatient (CLI) | payer MEDICARE, MEDICAID ==
--- NOTE | 2021-10-11 18:21 | XRAY Report ---
PROCEDURE: Finger(s) RT INDICATIONS: XRAY TECHNIQUE: AP hand, 3 views of the third finger(s) acquired. COMPARISON: None FINDINGS: Bones: No fractures or dislocations. No suspicious bony lesions. Soft tissues: No suspicious soft tissue calcifications. IMPRESSION: No acute fracture or dislocation. There is soft tissue swelling around the PIP joint. Consider MRI if necessary to evaluate for soft tissue injury. Reviewed by: Alan Rincon MD on 10/11/2021 6:20 PM PDT Approved by: Alan Rincon MD on 10/11/2021 6:20 PM PDT Station ID: [id number]
== END 2021-10-11 14:51 | disposition home or self-care (01) ==
LOC: DI.S 14:50
PROVIDERS: ATTEND Registered Nurse
DX: M25.449 Effusion, unspecified hand (principal); M79.89 Other specified soft tissue disorders

== ENCOUNTER 2022-08-16 07:20 | Outpatient (CLI) | payer MEDICARE, MEDICAID ==
[2022-08-16 14:55] LABS: BASOPHILS # (AUTO) 0.1 10^3/uL (0.0-0.1); BASOPHILS % (AUTO) 1.1 %; EOSINOPHILS # (AUTO) 0.1 10^3/uL (0.0-0.7); EOSINOPHILS % (AUTO) 1.8 %; HCT - HEMATOCRIT 43.1 % (37.0-47.0); HGB - HEMOGLOBIN 13.8 g/dL (12.0-16.0); LYMPHOCYTES # (AUTO) 1.4 10^3/uL (1.5-3.5); LYMPHOCYTES % (AUTO) 31.4 %; MEAN CORPUSCULAR HEMOGLOBIN 27.3 pg (27.0-31.0); MEAN CORPUSCULAR VOLUME 85.2 fL (81.0-99.0); MEAN PLATELET VOLUME 11.3 fL (7.9-10.8); MONOCYTES # (AUTO) 0.4 10^3/uL (0.0-1.0); NEUTROPHILS # (AUTO) 2.6 10^3/uL (1.5-6.6); NEUTROPHILS % (AUTO) 57.5 %; PLT - PLATELET COUNT 265 10^3/uL (130-450); RED BLOOD COUNT 5.06 10^6/uL (4.20-5.40); WHITE BLOOD COUNT 4.5 x10^3/uL (4.8-10.8)
[2022-08-16 15:19] LABS: % IRON SATURATION 23 % (20-50); CALCIUM 9.2 mg/dL (8.5-10.3); CHOL/HDL RATIO 2.1 (<4.4); CHOLESTEROL 201 mg/dL; HDL CHOLESTEROL 95 mg/dL; IRON 87 ug/dL (28-170); LDL CHOLESTEROL,CALCULATED 88 mg/dL; LDL/HDL RATIO 0.9 (<4.4); TOTAL IRON BINDING CAPACITY 374 ug/dL (250-450); TRANSFERRIN 267 mg/dL (192-382); TRIGLYCERIDES 90 mg/dL; VLDL CHOLESTEROL 18 mg/dL
[2022-08-16 15:26] LABS: THYROID STIMULATING HORMONE 3.66 uIU/mL (0.34-5.60)
[2022-08-16 15:33] LABS: FERRITIN 105.9 ng/mL (11.0-306.8)
[2022-08-16 20:21] LABS: ESTIMATED AVERAGE GLUCOSE 94 mg/dL (70-100); HEMOGLOBIN A1c% 4.9 % (4.27-6.07)
== END 2022-08-16 07:21 | disposition home or self-care (01) ==
LOC: LAB.S 07:20
PROVIDERS: ATTEND Internal Medicine
DX: Z00.00 Encounter for general adult medical examination without abnormal findings (principal); D64.9 Anemia, unspecified; M81.0 Age-related osteoporosis without current pathological fracture; I10 Essential (primary) hypertension; R73.9 Hyperglycemia, unspecified; F41.9 Anxiety disorder, unspecified; F32.A Depression, unspecified
CPT/HCPCS: 36415; 80061; 82306; 82310; 82607; 82728; 83036; 83540; 83721; 84443; 84466; 85025

== ENCOUNTER 2022-10-15 15:11 | Outpatient (CLI) | payer MEDICARE, MEDICAID | END 2022-10-15 15:12 | disposition critical access hospital (66) | LOC: EMS 15:11 | DX: R44.0 Auditory hallucinations (principal); R45.89 Other symptoms and signs involving emotional state; R46.89 Other symptoms and signs involving appearance and behavior; F10.90 Alcohol use, unspecified, uncomplicated | CPT/HCPCS: A0425; A0429 ==

== ENCOUNTER 2022-10-15 15:45 | Emergency (ER) | payer MEDICARE, MEDICAID ==
--- NOTE | 2022-10-15 16:28 | ED Physician Documentation ---
History of Present Illness - Stated complaint Stated Complaint: ETOH - Chief complaint Chief Complaint: MHE - History obtained from History obtained from: Patient, EMS - History of Present Illness Pain level max: 0 Pain level now: 0 - Additonal information Additional information: Patient is a 72-year-old female brought in today for alcohol intoxication. She reportedly drinks a bottle of gin about every 2 days. She states that they are remodeling her apartment so she is going from [facility] [place] [facility]. Reportedly she told EMS that she does not feel safe at home. She denies this to me. She also denies hearing any voices. Denies suicidal or homicidal ideation. EMS states that she was found crawling on the ground, unclear if she fell or not. Patient does not think she fell. 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 HEENT: Tonsil/Adenoidectomy - Present Medications Home Medications: Ambulatory Orders Medication Instructions Recorded Confirmed Sertraline HCl [Zoloft] 50 mg PO DAILY 10/15/22 10/15/22 - Allergies Allergies/Adverse Reactions: Allergies Allergy/AdvReac Type Severity Reaction Status Date / Time Penicillins Allergy Unknown Unknown Verified 10/15/22 19:30 dairy products Allergy Unknown Uncoded 10/15/22 19:30 - Social History Does the pt smoke?: No Smoking Status: Never smoker Does the pt drink ETOH?: Yes Does the pt have substance abuse?: No - Immunizations Immunizations are current?: No Immunizations: TDAP >10years/unknown - POLST Patient has POLST: No PD ED PE NORMAL - Vitals Vital signs reviewed: Yes - General General: Alert and oriented X 3, Other (Intoxicated) - HEENT HEENT: Atraumatic, PERRL, EOMI, Ears normal, Moist mucous membranes - Neck Neck: Supple, no meningeal sign - Cardiac Cardiac: RRR, Strong equal pulses - Respiratory Respiratory: No respiratory distress, Clear bilaterally - Abdomen Abdomen: Soft, Non tender, Non distended - Back Back: No CVA TTP, No spinal TTP - Derm Derm: Warm and dry - Extremities Extremities: No edema, No calf tenderness / cord - Neuro Neuro: Alert and oriented X 3, respiratory clinician 2-12 intact, No motor deficit, No sensory deficit, Other (Slurred speech) - Psych Psych: Other (Emotionally labile, will go from calm and cooperative to yelling and screaming.) Results - Vitals Vitals: Vital Signs - 24 hr 10/15/22 10/15/22 10/15/22 15:55 19:20 22:08 Temperature 36 C L 36.3 C L 36.4 C L Heart Rate 111 H 57 L 64 Respiratory 18 18 18 Rate Blood Pressure 156/102 H 185/93 H 166/92 H O2 Saturation 100 97 99 Oxygen O2 Source Room air - Labs Labs: Laboratory Tests 10/15/22 10/15/22 10/15/22 16:34 16:34 16:34 WBC 5.1 RBC 5.37 Hgb 14.7 Hct 44.6 MCV 83.1 MCH 27.4 MCHC 33.0 RDW 14.8 Plt Count 271 MPV 10.0 Neut # (Auto) 2.7 Lymph # (Auto) 1.9 Trinity # (Auto) 0.3 Eos # (Auto) 0.1 Baso # (Auto) 0.1 Absolute Nucleated RBC 0.00 Nucleated RBC % 0.0 Sodium 145 Potassium 3.7 Chloride 111 Carbon Dioxide 25 Anion Gap 9.0 BUN 15 Creatinine 1.0 Estimated GFR (MDRD) 54 L Glucose 89 Calcium 9.5 Magnesium 2.3 Total Bilirubin 0.8 AST 15 ALT 10 Alkaline Phosphatase 90 Total Creatine Kinase 72 Total Protein 6.9 Albumin 4.4 Globulin 2.5 Albumin/Globulin Ratio 1.8 Lipase 36 TSH 7.19 H Urine Color Urine Clarity Urine pH Ur Specific [place] Urine Protein Urine Glucose (UA) Urine Ketones Urine Occult Blood Urine Nitrite Urine Bilirubin Urine Urobilinogen Ur Leukocyte Esterase Ur Microscopic Review Urine Culture Comments Salicylates < 1.5 Urine Opiates Screen Ur Oxycodone Screen Urine Methadone Screen Ur Propoxyphene Screen Acetaminophen < 0.1 Ur Barbiturates Screen Ur Tricyclics Screen Ur Phencyclidine Scrn Ur Amphetamine Screen U Methamphetamines Scrn U Benzodiazepines Scrn Urine Cocaine Screen U Cannabinoids Screen Ethyl Alcohol 229.9 10/15/22 18:06 WBC RBC Hgb Hct MCV MCH MCHC RDW Plt Count MPV Neut # (Auto) Lymph # (Auto) Trinity # (Auto) Eos # (Auto) Baso # (Auto) Absolute Nucleated RBC Nucleated RBC % Sodium Potassium Chloride Carbon Dioxide Anion Gap BUN Creatinine Estimated GFR (MDRD) Glucose Calcium Magnesium Total Bilirubin AST ALT Alkaline Phosphatase Total Creatine Kinase Total Protein Albumin Globulin Albumin/Globulin Ratio Lipase TSH Urine Color STRAW Urine Clarity CLEAR Urine pH 7.0 Ur Specific [place] 1.010 Urine Protein NEGATIVE Urine Glucose (UA) NEGATIVE Urine Ketones NEGATIVE Urine Occult Blood NEGATIVE Urine Nitrite NEGATIVE Urine Bilirubin NEGATIVE Urine Urobilinogen 0.2 (NORMAL) Ur Leukocyte Esterase NEGATIVE Ur Microscopic Review NOT INDICATED Urine Culture Comments NOT INDICATED Salicylates Urine Opiates Screen NEGATIVE Ur Oxycodone Screen NEGATIVE Urine Methadone Screen NEGATIVE Ur Propoxyphene Screen NEGATIVE Acetaminophen Ur Barbiturates Screen NEGATIVE Ur Tricyclics Screen NEGATIVE Ur Phencyclidine Scrn NEGATIVE Ur Amphetamine Screen NEGATIVE U Methamphetamines Scrn NEGATIVE U Benzodiazepines Scrn NEGATIVE Urine Cocaine Screen NEGATIVE U Cannabinoids Screen POSITIVE H Ethyl Alcohol - Rads (name of study) Head CT Relevant Findings:: Final report received, See rad report PD Medical Decision Making - ED course Complexity details: reviewed results, re-evaluated patient, considered differential, d/w patient ED course: Initially unclear what had actually happened, apparently a life alert alarm had been triggered when she fell. Head CT does not show any acute abnormalities, head CT ordered as she was intoxicated and having significant mood swings. She was given 5 mg of Zyprexa and slept in the emergency department. When she awoke and sobered in the emergency department, her speech was clear and her emotional lability had improved. She is not suicidal or homicidal. She does drink gin regularly, uses marijuana as well. Recommend that she try to stop drinking. She does not want to go to rehab or detox. Information was given should she change her mind. Not psychotic. Ambulating with a steady gait. We will have her follow-up with her doctor for further care. Patient counseled regarding signs and symptoms for which I believe and urgent re-evaluation would be necessary. Patient with good understanding of and agreement to plan and is comfortable going home at this time This document was made in part using voice recognition software. While efforts are made to proofread this document, sound alike and grammatical errors may occur. Departure - Departure Disposition: 01 Home, Self Care Clinical Impression: Alcohol intoxication Qualifiers: Complication of substance-induced condition: uncomplicated Qualified Code(s): F10.920 - Alcohol use, unspecified with intoxication, uncomplicated Condition: Good Instructions: ED Alcohol Intoxication Follow-Up: your,doctor as needed [Other] Comments: Please follow-up with your doctor for further care. Return if you worsen. If you would like help stopping drinking, you can contact [facility]. [facility] [address] [place] [address] Fax: Forms: PCP List
[2022-10-15] MEDS ORDERED: OLANZapine ODT 5 MG TABLET TL ONE (16:30)
[2022-10-15 16:40] LABS: BASOPHILS # (AUTO) 0.1 10^3/uL (0.0-0.1); BASOPHILS % (AUTO) 1.2 %; EOSINOPHILS # (AUTO) 0.1 10^3/uL (0.0-0.7); HCT - HEMATOCRIT 44.6 % (37.0-47.0); HGB - HEMOGLOBIN 14.7 g/dL (12.0-16.0); LYMPHOCYTES # (AUTO) 1.9 10^3/uL (1.5-3.5); LYMPHOCYTES % (AUTO) 37.6 %; MEAN CORPUSCULAR HEMOGLOBIN 27.4 pg (27.0-31.0); MEAN CORPUSCULAR VOLUME 83.1 fL (81.0-99.0); MONOCYTES # (AUTO) 0.3 10^3/uL (0.0-1.0); MONOCYTES % (AUTO) 5.9 %; NEUTROPHILS # (AUTO) 2.7 10^3/uL (1.5-6.6); NEUTROPHILS % (AUTO) 52.9 %; PLT - PLATELET COUNT 271 10^3/uL (130-450); RED BLOOD COUNT 5.37 10^6/uL (4.20-5.40); RED CELL DISTRIBUTION WIDTH 14.8 % (12.0-15.0); WHITE BLOOD COUNT 5.1 x10^3/uL (4.8-10.8)
[2022-10-15 16:57] LABS: ALBUMIN 4.4 g/dL (3.2-5.5); ALBUMIN/GLOBULIN RATIO 1.8 (1.0-2.2); ALKALINE PHOSPHATASE 90 IU/L (42-121); ALT ALANINE AMINOTRANSFERASE 10 IU/L (10-60); AST ASPARTATE AMINOTRANSFERASE 15 IU/L (10-42); BILIRUBIN,TOTAL 0.8 mg/dL (0.2-1.0); BUN - BLOOD UREA NITROGEN 15 mg/dL (6-20); CALCIUM 9.5 mg/dL (8.5-10.3); CARBON DIOXIDE - CO2 25 mmol/L (21-32); CHLORIDE 111 mmol/L (101-111); CK- CREATINE KINASE 72 IU/L (30-223); ETOH - ETHANOL 229.9 mg/dL; GFR - MDRD 54 (>89); GLUCOSE 89 mg/dL (74-104); LIPASE 36 U/L (11-82); MAGNESIUM 2.3 mg/dL (1.7-2.3); POTASSIUM 3.7 mmol/L (3.5-4.5); SODIUM 145 mmol/L (135-145); TOTAL PROTEIN 6.9 g/dL (6.4-8.9)
[2022-10-15 17:00] LABS: SALICYLATE < 1.5 mg/dL
[2022-10-15 17:33] LABS: ACETAMINOPHEN < 0.1 ug/mL
--- NOTE | 2022-10-15 17:40 | CT Report ---
PROCEDURE: HEAD WO INDICATIONS: fall, altered TECHNIQUE: Noncontrast 4.5 mm thick angled axial sections acquired from the foramen magnum to the vertex. For r adiation dose reduction, the following was used: automated exposure control, adjustment of mA and/or kV according to patient size. COMPARISON: None. FINDINGS: Image quality: There is streak artifact seen through the skull base. CSF spaces: Basal cisterns are patent. No extra-axial fluid collections. Ventricles are normal in size and shape. Brain: No midline shift. No intracranial masses or hemorrhage. Sandhu-white matter interface is norm al. Skull and face: Calvarium and visualized facial bones are intact, without suspicious lesions. Sinuses: Visualized sinuses and mastoids are clear. IMPRESSION: No intracranial hemorrhage is seen. No significant intracranial abnormality is seen. Reviewed by: Dariel Barbour MD on 10/15/2022 4:39 PM AUDRA Approved by: Dariel Barbour MD on 10/15/2022 4:39 PM AUDRA Station ID: [id number]
[2022-10-15 18:10] LABS: MUDS CUTOFF CONCENTRATIONS CUTOFF CONC BELOW:
[2022-10-15 18:13] LABS: BILIRUBIN,URINE NEGATIVE (NEGATIVE); GLUCOSE, URINE (UA) NEGATIVE (NEGATIVE); KETONES,URINE (UA) NEGATIVE (NEGATIVE); LEUKOCYTE ESTERASE, URINE NEGATIVE (NEGATIVE); NITRITE,URINE NEGATIVE (NEGATIVE); OCCULT BLOOD,URINE NEGATIVE (NEGATIVE); PROTEIN,URINE NEGATIVE (NEGATIVE); UROBILINOGEN,URINE 0.2 (NORMAL) E.U./dL (NORMAL)
[2022-10-15 18:15] LABS: CLARITY,URINE CLEAR (CLEAR)
[2022-10-15 18:21] LABS: AMPHETAMINE SCREEN,URINE NEGATIVE (NEGATIVE); BARBITURATE SCREEN,UR NEGATIVE (NEGATIVE); BENZODIAZEPINES SCREEN, URINE NEGATIVE (NEGATIVE); COCAINE SCREEN URINE NEGATIVE (NEGATIVE); METHADONE SCREEN, URINE NEGATIVE (NEGATIVE); METHAMPHETAMINES SCREEN, URINE NEGATIVE (NEGATIVE); OPIATE SCREEN, URINE NEGATIVE (NEGATIVE); OXYCODONE SCREEN, URINE NEGATIVE (NEGATIVE); PROPOXYPHENE SCREEN, URINE NEGATIVE (NEGATIVE); THC CANNABINOID SCREEN, URINE POSITIVE (NEGATIVE); TRICYCLIC ANTIDEPRESSANT,URINE NEGATIVE (NEGATIVE)
[2022-10-15 23:21] VITALS: BP 160/90
== END 2022-10-15 23:15 | disposition home or self-care (01) ==
LOC: EDUNIT# → ED 15:45
DX: F10.129 Alcohol abuse with intoxication, unspecified (principal); R45.86 Emotional lability; Z59.01 Sheltered homelessness
CPT/HCPCS: 36415; 70450; 80053; 80306; 80307; 81003; 82550; 83690; 83735; 84443; 85025; 99283; 99284; A9270; G0480; 80320; 80329; 81001; 87086

== ENCOUNTER 2022-10-18 08:00 | Outpatient (CLI) | payer MEDICARE, MEDICAID ==
--- NOTE | 2022-10-18 12:17 | XRAY Report ---
PROCEDURE: Ribs w/PA Chest LT INDICATIONS: CONTUSION OF LEFT FRONT WALL OF THORAX TECHNIQUE: 2 views of the left ribs were acquired, along with a single view chest. COMPARISON: left rib radiographs 01/26/2016. FINDINGS: Surgical changes and devices: None. Bones and chest wall: Questionable nondisplaced fracture of the anterior left 6th rib seen on one vi ew only versus artifact from superimposed structures. No suspicious bony lesions. Overlying soft ti ssues appear unremarkable. Lungs and pleura: No pleural effusions or pneumothorax. Lungs appear clear. Mediastinum: Mediastinal contours appear normal. Heart size is normal. IMPRESSION: Questionable nondisplaced fracture of the anterior left 6th rib. Recommend correlation for point tend erness. No pleural effusion or pneumothorax. Reviewed by: Kurt Benedict MD on 10/18/2022 12:15 PM PDT Approved by: Kurt Benedict MD on 10/18/2022 12:15 PM PDT Station ID: [id number]
== END 2022-10-18 23:59 | disposition home or self-care (01) ==
LOC: DI.S 08:00
PROVIDERS: ATTEND Physician Assistant Medical
DX: S20.212A Contusion of left front wall of thorax, initial encounter (principal)

== ENCOUNTER 2022-12-08 17:18 | Outpatient (CLI) | payer MEDICARE, MEDICAID | END 2022-12-08 23:59 | disposition critical access hospital (66) | LOC: EMS 17:18 | DX: S69.91XA Unspecified injury of right wrist, hand and finger(s), initial encounter (principal); W01.0XXA Fall on same level from slipping, tripping and stumbling without subsequent striking against object, initial encounter; Y92.038 Other place in apartment as the place of occurrence of the external cause | CPT/HCPCS: A0425; A0427 ==

== ENCOUNTER 2022-12-08 18:03 | Emergency (ER) | payer MEDICARE, MEDICAID ==
[2022-12-08] MEDS ORDERED: HYDROmorphone 1 MG/ML CARPUJECT IVP STA (18:12)
--- NOTE | 2022-12-08 18:12 | ED Physician Documentation ---
PD HPI UPPER EXT INJURY - Stated complaint Stated Complaint: GLF - History obtained from History obtained from: Patient - History of Present Illness Location: Right - Additonal information Additional information: About 430 this afternoon she was turning around and tripped on the threshold and landed on an outstretched right, dominant wrist with severe pain and deformity, somewhat better after 50 mcg of fentanyl on the way here. Also kind of injured her right knee. No other injuries. No head injury. PD PAST MEDICAL HISTORY - Past Medical History Cardiovascular: None Respiratory: None Endocrine/Autoimmune: None GI: None : None HEENT: None Psych: Depression, Anxiety Musculoskeletal: Osteoporosis Derm: None - Past Surgical History Past Surgical History: Yes General: Appendectomy Ortho: Other /[employer]: Tubal ligation HEENT: Tonsil/Adenoidectomy - Present Medications Home Medications: Ambulatory Orders Medication Instructions Recorded Confirmed Sertraline HCl [Zoloft] 50 mg PO DAILY 10/15/22 10/15/22 HYDROcod/ACETAM 5/325 [Decker 5/325] 1 - 2 tab PO Q6H PRN #15 tablet 12/08/22 - Allergies Allergies/Adverse Reactions: Allergies Allergy/AdvReac Type Severity Reaction Status Date / Time Penicillins Allergy Unknown Unknown Verified 10/15/22 19:30 dairy products Allergy Unknown Uncoded 10/15/22 19:30 - Social History Does the pt smoke?: No Smoking Status: Never smoker Does the pt drink ETOH?: Yes Does the pt have substance abuse?: No - Immunizations Immunizations are current?: No Immunizations: TDAP >10years/unknown - POLST Patient has POLST: No PD ED PE NORMAL - Vitals Vital signs reviewed: Yes - General General: Alert and oriented X 3, No acute distress - HEENT HEENT: PERRL, EOMI - Neck Neck: Supple, no meningeal sign, No bony TTP - Cardiac Cardiac: RRR, No murmur - Respiratory Respiratory: No respiratory distress, Clear bilaterally - Abdomen Abdomen: Non tender - Back Back: No CVA TTP, No spinal TTP - Derm Derm: Normal color, Warm and dry - Extremities Extremities: Other (Deformity of right wrist consistent with Colles' fracture. Normal neurovascular function in the hand. Not able to elicit any tenderness of the right knee on initial evaluation.) - Neuro Neuro: Alert and oriented X 3, Normal speech Eye Opening: Spontaneous Motor: Obeys Commands Verbal: Oriented GCS Score: 15 - Psych Psych: Normal affect Results - Vitals Vitals: Vital Signs - 24 hr 12/08/22 12/08/22 12/08/22 18:10 19:37 19:39 Temperature 36.4 C L 36.4 C L Heart Rate 55 L 58 L 66 Respiratory 18 15 21 Rate Blood Pressure 195/153 H 203/93 H 160/78 H O2 Saturation 100 98 92 If not protocol : Oxygen Flow, liters/minute 12/08/22 12/08/22 12/08/22 19:47 20:00 20:30 Temperature Heart Rate 61 66 65 Respiratory 13 16 14 Rate Blood Pressure 157/77 H 188/97 H 200/101 H O2 Saturation 98 100 98 If not protocol 1 : Oxygen Flow, liters/minute 12/08/22 21:32 Temperature Heart Rate 78 Respiratory 18 Rate Blood Pressure 178/95 H O2 Saturation 98 If not protocol : Oxygen Flow, liters/minute Oxygen O2 Source Room air - Rads (name of study) R wrist XR Relevant Findings:: Final report received, EMP independent interpretation of test (Comminuted Colles' fracture) Procedures - Splint (location) - Minor RUE Splint applied by: Physician Type of splint: Fiberglass, Long arm, Sugar tong Other: Patient tolerated well, No complications, Neurovascular intact - Reduction Body part reduced: Right, Wrist Fracture or dislocation: Fracture dislocation Reduction aftercare: Alignment improved, Splint applied, Sling - Procedural sedation Sedation prep: Informed consent, Time out completed, Last meal (2pm), PE performed, ASA 2 - mild disease Sedation Medications: propofol (Divided doses totaling 130 mg) Mallampati classification: I Patient status during sedation: Unresponsive Sedation recovery: Recovered uneventfully Time in sedation (Minutes): 15 PD Medical Decision Making - ED course ED course: 72-year-old woman with isolated right wrist injury, sedated reduced and splinted. Discussed with her that given the fracture pattern probably will likely need eventual fixation and referred to orthopedics. Departure - Departure Disposition: 01 Home, Self Care Clinical Impression: Radius distal fracture Qualifiers: Encounter type: initial encounter Fracture type: closed Fracture morphology: Colles' Laterality: right Qualified Code(s): S52.531A - Colles' fracture of right radius, initial encounter for closed fracture Condition: Good Record reviewed to determine appropriate education?: Yes Instructions: ED Fx Forearm Radius Ulna Redu Requ Follow-Up: Orthopedic Care [Provider Group] - Within 1 week Prescriptions: HYDROcod/ACETAM 5/325 [Decker 5/325] 1 - 2 tab PO Q6H PRN #15 tablet PRN Reason: Pain Comments: Call the orthopedics office, he will need an appointment within the week to week and a half for further evaluation and treatment. Until then keep the splint on and dry, do not remove it, do not get it wet. Elevate is much as possible. You can ice through the splint. I sent your prescription electronically to [facility] in [place]. I am prescribing a short course of narcotic pain medication for you. These are potentially dangerous and addictive medications that should be used carefully. These medications may constipate you. Take an vuhk-zep-lszpjtk stool softener (docusate) twice daily with plenty of water while taking these medications. If you go 24 hours without a bowel movement, take akkq-whs-jxrtqhz miralax, per package instructions. Do not drink or drive while taking these medications. If you received narcotic or sedating medications while in the emergency department, do not drive for 24 hours. Store this medication in a safe, secure place and out of reach of children. It is a violation of federal law to give or sell this medication to another person or to use in a manner other than prescribed. The ED will not refill narcotic prescriptions, including prescriptions lost or stolen. To dispose of unwanted medications: 1. [facility] provides a drop box for medication in pill form only (no liquids) 8:00 am to 4:30 p.m. Sunday-Sunday in the lobby of the [facility], [address] [place] [address]. Empty pills into ziplock bag before disposal. Call [phone] for information. 2.[employer] is a free service available to all [facility] residents. Go to [email or web address] Note that many narcotic pain relievers also contain Tylenol/acetaminophen. Please ensure that your total dose of acetaminophen from all sources does not exceed 3 g (3000 mg) per day. Forms: PCP List Discharge Date/Time: 12/08/22 21:32
[2022-12-08] MEDS ORDERED: PROPOFOL 200 MG/20 ML VIAL IVP STA (18:25)
--- NOTE | 2022-12-08 18:41 | XRAY Report ---
PROCEDURE: Wrist 4 View RT INDICATIONS: wrist inj TECHNIQUE: 4 views of the wrist were acquired. COMPARISON: None. FINDINGS: Bones: There is an impacted, comminuted, moderately displaced fracture of the distal radius, with in tra-articular involvement. No radiocarpal dislocation can be seen. No definite associated fracture of the distal ulna can be see n. No scaphoid fracture is identified. There is widening of the scapholunate interface (a scapholuna te ligament tear is presumed). Soft tissues: No suspicious soft tissue calcifications or masses. IMPRESSION: Comminuted, moderately displaced, intra-articular fracture of the distal radius. If it would be helpful for clinical management decision making, please consider a dedicated wrist CT for further evaluation. Reviewed by: Dariel Barbour MD on 12/08/2022 5:40 PM AUDRA Approved by: Dariel Barbour MD on 12/08/2022 5:40 PM AUDRA Station ID: [id number]
[2022-12-08 19:39] VITALS: O2SAT 98
[2022-12-08] MEDS ORDERED: HYDROcod/ACET 5/325 Prepack 4 PO STA (19:47)
[2022-12-08] MEDS ORDERED: KETOROLAC 15 MG/ML VIAL IVP STA (20:11)
--- NOTE | 2022-12-08 20:12 | XRAY Report ---
PROCEDURE: Forearm RT INDICATIONS: post reduction TECHNIQUE: 2 views of the forearm were acquired. COMPARISON: Earlier in the day on 10/07/2022 FINDINGS: Bones: On this postreduction study, there is improvement in the alignment of the distal radius fractu re. Soft tissues: Soft tissue swelling is seen. The overlying casting material limits evaluation of fine detail. IMPRESSION: Improved alignment of the distal radius fracture on this post reduction study. Reviewed by: Dariel Barbour MD on 12/08/2022 7:11 PM AUDRA Approved by: Dariel Barbour MD on 12/08/2022 7:11 PM AUDRA Station ID: [id number]
[2022-12-08 21:42] VITALS: BP 178/95
== END 2022-12-08 21:32 | disposition home or self-care (01) ==
LOC: EDUNIT# → ED 18:03
DX: S52.531A Colles' fracture of right radius, initial encounter for closed fracture (principal); W01.0XXA Fall on same level from slipping, tripping and stumbling without subsequent striking against object, initial encounter; Y93.E2 Activity, laundry; Y92.89 Other specified places as the place of occurrence of the external cause
CPT/HCPCS: 25605; 73090; 73110; 96374; 96375; 99152; 99284; 99285; J1170

== ENCOUNTER 2022-12-12 11:45 | Outpatient (CLI) | payer MEDICARE, MEDICAID ==
[2022-12-12 12:25] LABS: POTASSIUM 4.7 mmol/L (3.5-4.5)
== END 2022-12-12 11:46 | disposition home or self-care (01) ==
LOC: LAB 11:45
PROVIDERS: ATTEND Orthopaedic Surgery Hand Surgery
DX: Z01.818 Encounter for other preprocedural examination (principal)
CPT/HCPCS: 36415; 80048; 93005

== ENCOUNTER 2023-01-15 08:59 | Outpatient (CLI) | payer MEDICARE, MEDICAID ==
--- NOTE | 2023-01-15 12:02 | CT Report ---
PROCEDURE: HEAD WO INDICATIONS: BALANCE PROBLEM, REPEATED FALLS TECHNIQUE: Noncontrast 4.5 mm thick angled axial sections acquired from the foramen magnum to the vertex. For r adiation dose reduction, the following was used: automated exposure control, adjustment of mA and/or kV according to patient size. COMPARISON: CT head 10/15/2022. FINDINGS: Image quality: Excellent. CSF spaces: Basal cisterns are patent. No extra-axial fluid collections. Ventricles are normal in size and shape. Brain: No midline shift. No intracranial masses or hemorrhage. Mild age-related global volume loss and chronic microvascular ischemic changes. Intracranial atherosclerotic vascular calcifications. Gra y-white matter interface is normal. Skull and face: Calvarium and visualized facial bones are intact, without suspicious lesions. Bilat eral lens replacement. Sinuses: Visualized sinuses and mastoids are clear. IMPRESSION: No acute intracranial pathology. No significant change compared to prior. Reviewed by: Vu Napier MD on 01/15/2023 12:01 PM PDT Approved by: Vu Napier MD on 01/15/2023 12:01 PM PDT Station ID: [id number]
== END 2023-01-15 09:00 | disposition home or self-care (01) ==
LOC: DI 08:59
PROVIDERS: ATTEND Physician Assistant Medical
DX: R27.0 Ataxia, unspecified (principal); R29.6 Repeated falls

== ENCOUNTER 2023-01-15 09:26 | Outpatient (CLI) | payer MEDICARE, MEDICAID ==
--- NOTE | 2023-01-15 09:58 | XRAY Report ---
PROCEDURE: Hip w/Pelvis 2-3V RT INDICATIONS: BALANCE PROBLEM,REPEATED FALLS TECHNIQUE: AP pelvis with lateral view(s) of the right hip(s). COMPARISON: Right femur from the same date FINDINGS: Bones: Remote right hip ORIF. Surgical hardware intact with no evidence of hardware failure or loose jacob. No fractures or dislocations. No suspicious bony lesions. Soft tissues: No suspicious soft tissue calcifications or masses. IMPRESSION: No acute bony abnormality. Expected appearance of orthopedic surgical hardware. Reviewed by: Fletcher Stafford MD on 01/15/2023 9:56 AM PDT Approved by: Fletcher Stafford MD on 01/15/2023 9:56 AM PDT Station ID: [id number]
--- NOTE | 2023-01-15 09:58 | XRAY Report ---
PROCEDURE: Femur 2V RT INDICATIONS: BALANCE PROBLEM,REPEATED FALLS TECHNIQUE: 2 views of the femur were acquired. COMPARISON: Right hip from the same date. FINDINGS: Bones: Intact orthopedic hardware, right hip. No evidence of hardware failure or loosening. No fract ures or dislocations. No suspicious bony lesions. Degenerative change at the knee. Soft tissues: No suspicious soft tissue calcifications or masses. IMPRESSION: No acute bony abnormality. Intact right hip surgical hardware. Degenerative arthritis of the right kn ee. Reviewed by: Fletcher Stafford MD on 01/15/2023 9:57 AM PDT Approved by: Fletcher Stafford MD on 01/15/2023 9:57 AM PDT Station ID: [id number]
== END 2023-01-15 09:27 | disposition home or self-care (01) ==
LOC: DI 09:26
PROVIDERS: ATTEND Physician Assistant Medical
DX: R27.0 Ataxia, unspecified (principal); R29.6 Repeated falls; M17.11 Unilateral primary osteoarthritis, right knee

== ENCOUNTER 2023-05-14 13:10 | Outpatient (CLI) | payer MEDICARE, MEDICAID ==
--- NOTE | 2023-05-15 09:34 | Mammography Report ---
BILATERAL DIGITAL SCREENING MAMMOGRAM 3D/2D: 05/14/2023 CLINICAL: Routine screening. Comparison is made to exams dated: 02/07/2022 mammogram, 08/13/2017 mammogram, 02/05/2019 mammogram, and 12/17/2013 mammogram - [facility]. Both breasts are extremely dense, which lowers the sensitivity of mammography (category d />75% gland ular tissue). No significant masses, calcifications, or other findings are seen in either breast. There has been no significant interval change. IMPRESSION: NEGATIVE There is no mammographic evidence of malignancy. A 1 year screening mammogram is recommended. Based on the Tyrer Cuzick model (a risk assessment model) the patient's lifetime risk is 17.5% and he r 10 year risk is 17.5%. According to the ACR, ACS, and NCCN guidelines, an annual breast MRI exam al maggie with mammogram is recommended if the patient's lifetime risk is 20% or greater. This exam was interpreted at Station ID: [id number]. NOTE: For mammograms, a report in lay terms will be sent to the patient. Approximately 15% of breast malignancies will not be visualized mammographically. In the management of a palpable breast mass, a negative mammogram must not discourage biopsy of a clinically suspicious lesion. Electronically Signed By: Sonali arroyo/vannessa:05/14/2023 17:18:45 ACR BI-RADS Category 1: Negative 3341F PARENCHYMAL PATTERN: (VD) - The breast(s) demonstrate(s) extremely dense parenchyma, limiting the sen sitivity of mammography. BI-RADS CATEGORY: (1) - 1 Mammogram [id number] 1 year screening LATERALITY: (B)
== END 2023-05-14 13:11 | disposition home or self-care (01) ==
LOC: DI 13:10
DX: Z12.31 Encounter for screening mammogram for malignant neoplasm of breast (principal); R92.30 Dense breasts, unspecified

== ENCOUNTER 2023-05-14 13:28 | Outpatient (CLI) | payer MEDICARE, MEDICAID ==
--- NOTE | 2023-05-14 15:35 | DEXA Report ---
PROCEDURE: Dexa Spine and/or Hip INDICATIONS: POST MENOPAUSAL TECHNIQUE: Dual energy x-ray absorptiometry (DXA) was performed on a Amplifinity System. Regions measur ed are the AP Spine, femoral neck, and if needed forearm. COMPARISON: 08/13/2017 FINDINGS: Lumbar Spine: L4 excluded due to increased density. Bone Mineral Density: 1.01 g/cm/cm,T score: -1.3. Since the most recent prior study, there has been a statistically significant increase in bone mineral density by 14 percent. Left Femoral Neck: Bone Mineral Density: 0.585 g/cm/cm, T score: -3.3. Left Hip: Bone Mineral Density: 0.553 g/cm/cm,T score: -3.6. Since the most recent prior study, there has been a statistically significant decrease in bone mineral density by -8.7 percent. (T score greater or equal to -1.0: NORMAL) (T score from -1.1 to -2.4: OSTEOPENIA) (T score less than or equal to -2.5 to: OSTEOPOROSIS) Impression: By WHO criteria, this patient has osteoporosis. Interval statistical increase in bone mineral density of the lumbar spine. Interval statistical decre ase in bone mineral density of the hip. Patients with diagnosis of osteoporosis or osteopenia should have regular bone mineral density assess ment. For those eligible for Medicare, routine testing is allowed once every 2 years. Testing frequ ency can be increased for patients who have rapidly progressing disease or for those who are receivin g medical therapy to restore bone mass. Reviewed by: Francisco Javier Anders MD on 05/14/2023 3:34 PM PST Approved by: Francisco Javier Anders MD on 05/14/2023 3:34 PM PST Station ID: [id number]
== END 2023-05-14 13:29 | disposition home or self-care (01) ==
LOC: DI 13:28
PROVIDERS: ATTEND Physician Assistant Medical
DX: M81.0 Age-related osteoporosis without current pathological fracture (principal); Z78.0 Asymptomatic menopausal state

== ENCOUNTER 2023-05-31 13:55 | Outpatient (CLI) | payer MEDICARE, MEDICAID ==
[2023-05-31 20:05] LABS: ALBUMIN 4.5 g/dL (3.2-5.5); BILIRUBIN,TOTAL 0.9 mg/dL (0.2-1.0); CALCIUM 9.5 mg/dL (8.5-10.3); CREATININE 0.8 mg/dL (0.6-1.3); POTASSIUM 4.2 mmol/L (3.5-4.5); TOTAL PROTEIN 6.7 g/dL (6.4-8.9)
== END 2023-05-31 13:56 | disposition home or self-care (01) ==
LOC: LAB.S 13:55
PROVIDERS: ATTEND Orthopaedic Surgery Hand Surgery
DX: Z01.818 Encounter for other preprocedural examination (principal)
CPT/HCPCS: 36415; 80053

== ENCOUNTER 2023-08-27 15:46 | Outpatient (CLI) | payer MEDICARE, MEDICAID ==
--- NOTE | 2023-08-27 17:52 | XRAY Report ---
PROCEDURE: Elbow 3+V RT INDICATIONS: RIGHT ELBOW PAIN TECHNIQUE: 3 views of the elbow were acquired. COMPARISON: None. FINDINGS: Bones: Mild overall degenerative changes. No acute displaced fracture. Soft tissues: Possible trace joint effusion. IMPRESSION: No acute displaced fracture or dislocation. However there may be trace joint effusion. If there is hi gh concern for occult /nondisplaced injury, consider repeat radiography or cross-sectional imaging. Reviewed by: Alan Rincon MD on 08/27/2023 5:51 PM PDT Approved by: Alan Rincon MD on 08/27/2023 5:51 PM PDT Station ID: [id number]
--- NOTE | 2023-08-27 17:54 | XRAY Report ---
PROCEDURE: Knee 3V BL INDICATIONS: RIGHT KNEE PAIN TECHNIQUE: 3 views of the knee(s) were acquired. COMPARISON: 11/23/2018 FINDINGS: Bones: Moderate bilateral degenerative changes, particularly in the medial compartments. There are omer bchondral lucencies which may represent geodes. No acute displaced fracture or dislocation. Possible small intra-articular bone fragment seen at the left knee on lateral view. Similar right chondral judy face patellar sclerotic changes, likely degenerative. Soft tissues: Suspected trace joint effusions bilaterally. IMPRESSION: Moderate degenerative changes bilaterally particularly in the medial compartments. If there is high c oncern for further derangement, consider MRI evaluation. Reviewed by: Alan Rincon MD on 08/27/2023 5:53 PM PDT Approved by: Alan Rincon MD on 08/27/2023 5:53 PM PDT Station ID: [id number]
== END 2023-08-27 23:59 | disposition home or self-care (01) ==
LOC: DI.S 15:46
PROVIDERS: ATTEND Registered Nurse
DX: M25.521 Pain in right elbow (principal); M17.0 Bilateral primary osteoarthritis of knee